=== PATIENT | female | born 1960 | race Caucasian/White ===

== ENCOUNTER 2024-05-21 07:50 | Day surgery (SDC) | payer BC ==
[~2024-05-21 07:50] MED LIST: Sodium Chloride 0.9% 10 ML Syringe FLUSH PRN; Sodium Chloride 0.9% 2.5 ML Syringe FLUSH PRN; Sodium Chloride 0.9% 20 ML SDV IV PRN
[2024-05-21] MEDS: Lactated Ringers 1,000 ML IV SCH (08:20)
[2024-05-21] MEDS ORDERED: propofoL 50 ML ONE (08:22)
[2024-05-21] MEDS ORDERED: Lidocaine 2% 5 ML SDV ONE (08:22)
[2024-05-21] MEDS ORDERED: Famotidine 20 MG/2 ML SDV ONE (09:04)
[2024-05-21] MEDS: Famotidine 20 MG/2 ML SDV IVPUSH ONE (09:10)
[2024-05-21] MEDS ORDERED: Propofol 200 MG/20 ML SDV ONE (09:41)
== END 2024-05-21 11:06 | disposition home or self-care (01) ==
LOC: MW.SDS 07:50
PROVIDERS: ATTEND Surgery
DX: Z12.11 Encounter for screening for malignant neoplasm of colon (principal); K22.2 Esophageal obstruction; K57.30 Diverticulosis of large intestine without perforation or abscess without bleeding; K44.9 Diaphragmatic hernia without obstruction or gangrene; K21.9 Gastro-esophageal reflux disease without esophagitis; E78.00 Pure hypercholesterolemia, unspecified; Z79.899 Other long term (current) drug therapy
CPT/HCPCS: 43239; 43249; 45378; C1726; J2704; J3490; J7120; 00813